=== PATIENT | male | born 1960 | race Hispanic/Latino ===

== ENCOUNTER → 2023-06-25 | Emergency (ER) | payer BC ==
[~2023-06-25] MED LIST: AMIODARONE HCL 150 MG/3 ML INJ IV ONE; AMIODARONE IN DEXTROSE,ISO-OSM 360 MG/200 ML BAG IV ONE; ASPIRIN 81 MG CHEWABLE TABLET ONE; EPINEPHrine 1 MG/10 ML SYR IV ONE; ETOMIDATE 20 MG/10 ML VIAL IV ONE; HEPARIN 5000 UNIT/ML 1 ML VIAL ONE; HEPARIN/D5W 25,000 UNIT/500 ML BAG IV ONE; LIDOCAINE 100 MG/5 ML SYRINGE IV ONE; LIDOCAINE IV ONE; MORPHINE 4 MG/ML SYR ONE; Magnesium Sulfate 2gm IVPB 2 G/50 ML BAG IV ONE; ONDANSETRON 4 MG/2 ML VIAL ONE; SODIUM CHL 0.9% 1000 ML BAG IV ONE; SUCCINYLCHOLINE 20 MG/ML (10 ML) IV ONE
[2023-06-25 19:33] LABS: Absolute Lymphocytes (CBC) 2.9 K/uL (0.7-4.9); Hematocrit 47.9 % (39.6-49.0); Lymphocytes % 25.5 % (15.3-44.8); MCV 92.1 fL (80-100); MPV 8.2 fL (7.6-11.3); Platelets 270 thou/uL (152-406)
[2023-06-25 19:52] LABS: Magnesium 2.2 mg/dL (1.6-2.4); Potassium 3.5 mEq/L (3.5-5.1); Troponin High Sensitivity 29.4 pg/mL (<58.9)
--- NOTE | 2023-06-25 20:46 | ER ---
Nurse's Notes [facility] Name: Chadwick Flores Age: 62 yrs Sex: Male : 1960 Arrival Date: 06/25/2023 Time: 19:08 Bed 17 Private MD: Diagnosis: ST elevation (STEMI) myocardial infarction involving left anterior descending coronary artery;Acute respiratory failure;Cardiac arrest, cause unspecified Presentation: 06/25 19:16 Chief complaint: Patient states: 15 MINUTES HEAVY SUBSTERNAL CHEST PAIN. Coronavirus nw1 screen: At this time, the client does not indicate any symptoms associated with coronavirus-19. Ebola Screen: No symptoms or risks identified at this time. Initial Sepsis Screen: Does the patient meet any 2 criteria? No. Patient's initial sepsis screen is negative. Does the patient have a suspected source of infection? No. Patient's initial sepsis screen is negative. Risk Assessment: Do you want to hurt yourself or someone else? Patient reports no desire to harm self or others. Onset of symptoms was June 25, 2023 at 19:00. 19:16 Method Of Arrival: Wheelchair nw1 19:16 Acuity: PARAM 1 nw1 19:30 Care prior to arrival: None. Compressions began at 19:30. as6 Triage Assessment: 19:18 General: Appears distressed, uncomfortable, Behavior is cooperative, appropriate for nw1 age, anxious. Pain: Complains of pain in chest. Cardiovascular: Rhythm is STEMI ON EKG. Historical: - Allergies: 19:18 No Known Allergies; nw1 - PMHx: 19:18 Hypertensive disorder; Cerebrovascular accident; nw1 - Immunization history:: Adult Immunizations up to date. - Social history:: Smoking status: Patient denies any tobacco usage or history of. - History obtained from: spouse. Screenin:15 [facility] ED Fall Risk Assessment (Adult) Score/Fall Risk Level 0 - 2 = Low Risk. Abuse as6 screen: Denies threats or abuse. Denies injuries from another. Nutritional screening: No deficits noted. Tuberculosis screening: No symptoms or risk factors identified. Assessment: 19:31 General: Appears uncomfortable, Behavior is restless. Pain: Complains of pain in chest as6 Noted to be guarding, moaning, restless. Cardiovascular: Reports chest pain. 19:32 General: Dr. Bowers at bedside evaluating pt and became unresponsive, cardiac as6 rhythm is v-tach, code blue called . 19:35 CPR assessment: pulses present w/ compressions. as6 19:35 Cardiac rhythm is V tach. as6 19:37 Cardiac rhythm is V tach. as6 19:39 Cardiac rhythm is V tach. as6 19:42 Cardiac rhythm is V tach. as6 19:46 Cardiac rhythm is V tach. as6 19:46 General: ROSC achieved . as6 19:57 General: failed intubation attempt by Dr. Bowers. as6 20:00 General: failed intubation attempt by Dr. Bowers. as6 20:12 Reassessment: REPORT TO [facility]U [facility] AT B/S FOR TRANSPORT. as6 20:15 General: life flight now at bedside. pt removed from hospital vital sign equipment, as6 placed on life flight equipment . Vital Signs: 19:15 BP 133 / 82; Pulse 77; Resp 16 S; Pulse Ox 100% on R/A; as6 19:16 BP 138 / 92; Pulse 77; Resp 23; Pulse Ox 100% ; Weight 90.72 kg; Height 5 ft. 7 in. ; nw1 19:42 BP 125 / 78; Pulse 108; Resp 21 S; as6 19:45 BP 108 / 65; Pulse 106; Resp 33; Pulse Ox 90% ; as6 19:48 BP 103 / 89; Pulse 101; Resp 26; Pulse Ox 99% ; as6 19:50 BP 103 / 73; Pulse 99; Resp 19; Pulse Ox 99% ; as6 19:55 BP 63 / 39; Pulse 84; Resp 22; Pulse Ox 43% ; as6 20:00 BP 67 / 44; Pulse 74; Resp 30; Pulse Ox 36% ; as6 20:02 BP 63 / 42; Pulse 83; Resp 38; Pulse Ox 77% ; as6 20:05 BP 68 / 34; Pulse 82; Resp 23; Pulse Ox 94% ; as6 20:07 BP 50 / 31; Pulse 74; Resp 25; Pulse Ox 94% ; as6 20:10 BP 54 / 33; Pulse 74; Resp 23; Pulse Ox 92% ; as6 20:13 BP 57 / 28; Pulse 79; Resp 26; Pulse Ox 89% ; as6 19:16 Body Mass Index 31.32 (90.72 kg, 170.18 cm) nw1 ED Course: 19:12 Patient arrived in ED. rv1 19:14 Sandoval Bowers is Attending Physician. ci 19:18 Triage completed. nw1 19:18 Inserted saline lock: 18 gauge 20 gauge in right in left antecubital area, using as6 aseptic technique. Blood collected. 19:18 Arm band placed on. nw1 19:20 Placed in gown. Bed in low position. Call light in reach. Side rails up X2. as6 19:20 Provided Education on: need for transfer . as6 19:37 Defibrillated with 200 joules. as6 19:40 Inserted saline lock: 18 gauge in left hand, using aseptic technique. as6 19:42 Defibrillated with 200 joules. as6 19:46 Defibrillated with 200 joules. as6 20:00 Inserted saline lock: 18 gauge in left EJ, using aseptic technique. as6 20:03 Assisted provider with intubation using 7.5 mm ETT via oral route. ET tube secured at as6 25cm at the lips. Set up intubation tray. Intubated by Clement Haskins MD Placement verified by auscultating bilateral breath sounds, CXR, Patient tolerated. 20:05 Johnson cath inserted, using sterile technique, 16 Fr., by ED staff, balloon inflated, to as6 gravity drainage, returned clear yellow urine. Patient tolerated well. NGT: inserted 16 Fr. other oral verified placement of air over stomach, verified return of gastric contents, Placement verified by X-ray, to continuous suction. Returned gastric contents. Patient tolerated well. 20:26 XRAY Chest (1 view) In Process Unspecified. EDMS 21:10 Patient transferred, IV remains in place. as6 Administered Medications: 19:19 Not Given (Other Intervention Used): aspirinsuppository 600 mg AK once as6 19:23 Not Given (Duplicate Order): Heparin (KS-Bolus No thrombolytic) - [id number] units/kg ci IVP once; Max 5000 units 19:26 Drug: Aspirin PO 162 mg PO once Route: PO; as6 19:27 Drug: Heparin (KS-Bolus with thrombolytic) - HEParin IVP 60 units/kg IVP once; Max 4000 as6 units {Co-Signature: bp (Rufina, Stevie RN).} Route: IVP; Site: right antecubital; 19:28 Drug: morphine IVP or IV 4 mg IVP once over 4 mins Route: IVP; Infused Over: 4 mins; as6 Site: left antecubital; 19:28 Drug: Ondansetron IVP 4 mg IVP once; over 2 minutes Route: IVP; Site: left antecubital; as6 19:35 Drug: EPINEPHrine 0.1mg/mL 1:10,000 1 mg IVP once Route: IVP; Site: left antecubital; as6 19:37 Drug: amiodarone 300 mg IVP once Route: IVP; Site: left antecubital; as6 19:38 Drug: EPINEPHrine 0.1mg/mL 1:10,000 1 mg IVP once Route: IVP; Site: left antecubital; as6 19:40 Drug: EPINEPHrine 0.1mg/mL 1:10,000 1 mg IVP once Route: IVP; Site: left antecubital; as6 19:41 Drug: amiodarone 150 mg IVP once Route: IVP; Site: left antecubital; as6 19:42 Drug: Magnesium Sulfate 2 grams IVPB once over 2 hrs Route: IVPB; Infused Over: 2 mins; as6 Site: right antecubital; 19:45 Drug: Lidocaine Drip 1 mg/min IV See Administration Instructions; (Standard as6 concentration 2 g / 500 mL D5W); Recommended max rate 4 mg/min; Titrate 0.5 mg/min as often as every 15 minutes to achieve goal (see titration policy); Goal parameter PHYSICIAN SPECIFIED Route: IV; Rate: calculated rate; Site: left antecubital; 19:48 Drug: amiodarone 900 mg, D5W 500 ml; IVPB at 1 mg/min continuous; for 6 hrs, then as6 change to 0.5 mg/min Route: IVPB; Rate: 1 mg/min; Site: right antecubital; 19:54 Drug: Etomidate 20 mg IVP once Route: IVP; Site: left hand; as6 19:54 Drug: Succinylcholine 120 mg IVP once Route: IVP; Site: left antecubital; as6 20:09 Drug: NS 0.9% 1000 ml IV at 1 bolus Per protocol; 1000 mL bolus Route: IV; Rate: 1 as6 bolus; Site: left antecubital; 20:15 Drug: Heparin ([place] Drip) 12 units/kg/hr - (HEParin 92414 units, D5W 500 ml;) IV Per as6 protocol; Max initial rate 1000 units/hr {Co-Signature: [email or web address] (Gerri Bourne RN).} Route: IV; Rate: calculated rate; Site: right antecubital; 20:46 CANCELLED (Physician Discretion): TNK FOR STROKE - [id number] mg IV at per as6 protocol once; MAX DOSE 25 mg, IVP over 5 seconds Medication: 19:15 VIS not applicable for this client. as6 Outcome: 19:46 Outcome Resuscitation successful as6 20:45 ER care complete, transfer ordered by . ci 21:10 Transferred by helicopter to [facility], [facility], Transfer form completed. as6 21:10 critical 21:10 Instructed on the need for transfer, 21:17 Patient left the ED. as6 Signatures: Dispatcher [employer] EDMS Vincent Shrestha RN RN as6 Radha Roman rv1 Sandoval Bowers Nicole, RN RN nw1 Stevie Almaraz RN bp Gerri Bourne RN [email or web address] Corrections: (The following items were deleted from the chart) 06/26 03:32 06/25 19:32 General: Dr. Bowers at bedside evaluating pt and became unresponsive, as6 cardiac rhythm is v-tach. as6
--- NOTE | 2023-06-25 20:47 | EDPHYS ---
Physician Documentation [facility] Name: Chadwick Flores Age: 62 yrs Sex: Male : 1960 Arrival Date: 06/25/2023 Time: 19:08 Bed 17 Private MD: ED Physician Sandoval Bowers HPI: 06/25 20:17 This 62 yrs old Male presents to ER via Wheelchair with complaints of Chest ci pain. 20:17 Patient is a 62-year-old male with PMH CVA, hypertension, hyperlipidemia who presents ci to the ED with chest pain that began about an hour prior to arrival. Pain is midsternal, feels like pressure, nonradiating. Endorses associated shortness of breath, nausea/vomiting, diaphoresis. Patient reports he has been getting similar chest pain for about a week which was relieved by extra strength Tylenol but this evening chest pain did not improve which prompted ED visit. Took 2 baby aspirin's prior to arrival. Historical: - Allergies: 19:18 No Known Allergies; nw1 - PMHx: 19:18 Hypertensive disorder; Cerebrovascular accident; nw1 - Immunization history:: Adult Immunizations up to date. - Social history:: Smoking status: Patient denies any tobacco usage or history of. - History obtained from: spouse. ROS: 20:17 Cardiovascular: Positive for chest pain, ci 20:17 Respiratory: Positive for shortness of breath, 20:17 Abdomen/GI: Positive for nausea, 20:17 Skin: Positive for diaphoresis, 21:11 Constitutional: Negative for fever, chills, and weight loss, ci Exam: 20:17 Head/Face: Normocephalic, atraumatic. Eyes: Pupils equal round and reactive to light, ci extra-ocular motions intact. Lids and lashes normal. Conjunctiva and sclera are non-icteric and not injected. Cornea within normal limits. Periorbital areas with no swelling, redness, or edema. ENT: Nares patent. No nasal discharge, no septal abnormalities noted. Tympanic membranes are normal. Oropharynx with no redness, swelling, or masses, exudates, or evidence of obstruction, uvula midline. Mucous membranes moist. Small laceration to right ear. Neck: Trachea midline, no thyromegaly or masses palpated, and no cervical lymphadenopathy. Supple, full range of motion without nuchal rigidity, or vertebral point tenderness. No Meningismus. Chest/axilla: Normal chest wall appearance and motion. Nontender with no deformity. No lesions are appreciated. Cardiovascular: Regular rate and rhythm with a normal S1 and S2. No gallops, murmurs, or rubs. Normal PMI, no JVD. No pulse deficits. Respiratory: Lungs have equal breath sounds bilaterally, clear to auscultation and percussion. No rales, rhonchi or wheezes noted. No increased work of breathing, no retractions or nasal flaring. Abdomen/GI: Soft, non-tender, with normal bowel sounds. No distension or tympany. No guarding or rebound. No evidence of tenderness throughout. Back: No spinal tenderness. No costovertebral tenderness. Full range of motion. Skin: Warm, dry with normal turgor. Normal color with no rashes, no lesions, and no evidence of cellulitis. MS/ Extremity: Pulses equal, no cyanosis. Neurovascular intact. Full, normal range of motion. Neuro: Awake and alert, GCS 15, oriented to person, place, time, and situation. Cranial nerves II-XII grossly intact. Motor strength 5/5 in all extremities. Sensory grossly intact. Cerebellar exam normal. Normal gait. Psych: Awake, alert, with orientation to person, place and time. Behavior, mood, and affect are within normal limits. 20:17 Constitutional: The patient appears anxious, obese, in obvious distress, moderately distressed, obviously ill, uncomfortable, 21:11 ECG was reviewed by the Attending Physician. ci Vital Signs: 19:15 BP 133 / 82; Pulse 77; Resp 16 S; Pulse Ox 100% on R/A; as6 19:16 BP 138 / 92; Pulse 77; Resp 23; Pulse Ox 100% ; Weight 90.72 kg; Height 5 ft. 7 in. ; nw1 19:42 BP 125 / 78; Pulse 108; Resp 21 S; as6 19:45 BP 108 / 65; Pulse 106; Resp 33; Pulse Ox 90% ; as6 19:48 BP 103 / 89; Pulse 101; Resp 26; Pulse Ox 99% ; as6 19:50 BP 103 / 73; Pulse 99; Resp 19; Pulse Ox 99% ; as6 19:55 BP 63 / 39; Pulse 84; Resp 22; Pulse Ox 43% ; as6 20:00 BP 67 / 44; Pulse 74; Resp 30; Pulse Ox 36% ; as6 20:02 BP 63 / 42; Pulse 83; Resp 38; Pulse Ox 77% ; as6 20:05 BP 68 / 34; Pulse 82; Resp 23; Pulse Ox 94% ; as6 20:07 BP 50 / 31; Pulse 74; Resp 25; Pulse Ox 94% ; as6 20:10 BP 54 / 33; Pulse 74; Resp 23; Pulse Ox 92% ; as6 20:13 BP 57 / 28; Pulse 79; Resp 26; Pulse Ox 89% ; as6 19:16 Body Mass Index 31.32 (90.72 kg, 170.18 cm) nw1 Procedures: 20:17 CPR: See CPR flow sheet. Initial patient assessment: unresponsive, agonal respirations, ci cyanotic, pale, Ambu ventilation, pulses present w/ compressions, The presenting cardiac rhythm is V tach. respirations assisted with BVM, Compressions: began at 19:32. Meds given: Epinephrine X 3, Lidocaine, Amiodarone, Defibrillation: 200 joules X 4. regained rhythm, CPR was stopped at 19:45. Intubation: Ventilated with 100% NRB prior to procedure. O2 saturation prior to procedure was 99 %. Intubated orally using S4 with 7.5 mm ETT. Successful on third attempt. Ventilated with Ambu bag. ventilator. Cricoid pressure applied during procedure. Tube secured with ETT hill Placement verified by CXR, CO2 detector with (+) color change, auscultating bilateral breath sounds, O2 saturation after procedure was 95 %. Patient tolerated well, Etomidate and succinylcholine for RSI. MDM: 19:14 Patient medically screened. ci 20:17 Differential Diagnosis STEMI, NSTEMI, stable angina, pneumonia, pneumothorax, PE. Data ci reviewed: vital signs, nurses notes, lab test result(s), EKG. Consideration of Admission/Observation Patient was admitted/placed on observation. Management of patient was discussed with the following: Physician Practice Consultant: Ekg Monitor Dr. Patrick. I considered the following discharge prescriptions or medication management in the emergency department TNK initially ordered, however patient went into V. tach arrest, type copyist stated to hold as patient will be going to [facility]. Independent interpretation of the following test(s) in the Emergency Department EKG: See my EKG interpretation above. Historians other than the Patient: Spouse/Significant Other: . Daughter/Son: . Care significantly affected by the following chronic conditions: Hypertension. Counseling: I had a detailed discussion with the patient and/or guardian regarding the historical points, exam findings, and any diagnostic results supporting the discharge/admit diagnosis, lab results, radiology results, the need to transfer to another facility. Special discussion: Discussed contraindications to TNK and heparin, no contraindications. ED course: Patient presents for chest pain, obvious anterior STEMI with reciprocal changes in inferior leads. Patient was given additional 2 baby aspirin, cardiology consulted. Patient accepted at [facility]. While in the ED patient went into witnessed V. tach arrest. Patient was defibrillated x 3 with 200 J, received amnio bolus and amnio infusion. Patient went back into V-fib, will was shocked a fourth time, lidocaine initiated at this time. CPR for 10 to 15 minutes with ROSC. Patient was subsequently intubated emergently. Tensive, started on levo drip. [facility] at bedside to transport patient to [facility]. . ED course: Critical care time: I have personally spent 75 minutes of critical care time exclusive of time spent on any procedures in the evaluation and management of this critically ill patient's condition of STEMI, cardiac arrest, respiratory failure.. 06/25 19:18 Order name: Basic Metabolic Panel; Complete Time: 21:10 ci 06/25 21:10 Interpretation: Abnormal: CRE 1.45. ci 06/25 19:18 Order name: CBC with Diff; Complete Time: 21:10 ci 06/25 21:10 Interpretation: WBC 11.50. ci 06/25 19:18 Order name: Magnesium; Complete Time: 21:10 ci 06/25 19:18 Order name: NT PRO-BNP; Complete Time: 21:10 ci 06/25 21:10 Interpretation: NT PRO-BNP 143. ci 06/25 19:18 Order name: Troponin HS; Complete Time: 21:10 ci 06/25 19:18 Order name: XRAY Chest (1 view); Complete Time: 21:10 ci 06/25 21:10 Interpretation: Abnormal: Per Radiologist's finding(s): IMPRESSION: Findings ci suggestive of central venous congestion/CHF. 06/25 19:18 Order name: EKG; Complete Time: 19:19 ci 06/25 19:18 Order name: Cardiac monitoring; Complete Time: 19:18 ci 06/25 19:18 Order name: EKG - Nurse/Tech; Complete Time: 19:18 ci 06/25 19:18 Order name: IV Saline Lock; Complete Time: 19:18 ci 06/25 19:18 Order name: Labs collected and sent; Complete Time: 19:28 ci 06/25 19:18 Order name: O2 Per Protocol; Complete Time: 19:18 ci 06/25 19:18 Order name: O2 Sat Monitoring; Complete Time: 19:18 ci EC:11 Rate is 74 beats/min. Rhythm is regular, Sinus Rhythm with Occasional PVCs. Clinical ci impression: Anterior SC - acute. Administered Medications: 19:19 Not Given (Other Intervention Used): aspirinsuppository 600 mg MD once as6 19:23 Not Given (Duplicate Order): Heparin (SC-Bolus No thrombolytic) - [id number] units/kg ci IVP once; Max 5000 units 19:26 Drug: Aspirin PO 162 mg PO once Route: PO; as6 19:27 Drug: Heparin (SC-Bolus with thrombolytic) - HEParin IVP 60 units/kg IVP once; Max 4000 as6 units {Co-Signature: bp (Stevie Almaraz RN).} Route: IVP; Site: right antecubital; 19:28 Drug: morphine IVP or IV 4 mg IVP once over 4 mins Route: IVP; Infused Over: 4 mins; as6 Site: left antecubital; 19:28 Drug: Ondansetron IVP 4 mg IVP once; over 2 minutes Route: IVP; Site: left antecubital; as6 19:35 Drug: EPINEPHrine 0.1mg/mL 1:10,000 1 mg IVP once Route: IVP; Site: left antecubital; as6 19:37 Drug: amiodarone 300 mg IVP once Route: IVP; Site: left antecubital; as6 19:38 Drug: EPINEPHrine 0.1mg/mL 1:10,000 1 mg IVP once Route: IVP; Site: left antecubital; as6 19:40 Drug: EPINEPHrine 0.1mg/mL 1:10,000 1 mg IVP once Route: IVP; Site: left antecubital; as6 19:41 Drug: amiodarone 150 mg IVP once Route: IVP; Site: left antecubital; as6 19:42 Drug: Magnesium Sulfate 2 grams IVPB once over 2 hrs Route: IVPB; Infused Over: 2 mins; as6 Site: right antecubital; 19:45 Drug: Lidocaine Drip 1 mg/min IV See Administration Instructions; (Standard as6 concentration 2 g / 500 mL D5W); Recommended max rate 4 mg/min; Titrate 0.5 mg/min as often as every 15 minutes to achieve goal (see titration policy); Goal parameter PHYSICIAN SPECIFIED Route: IV; Rate: calculated rate; Site: left antecubital; 19:48 Drug: amiodarone 900 mg, D5W 500 ml; IVPB at 1 mg/min continuous; for 6 hrs, then as6 change to 0.5 mg/min Route: IVPB; Rate: 1 mg/min; Site: right antecubital; 19:54 Drug: Etomidate 20 mg IVP once Route: IVP; Site: left hand; as6 19:54 Drug: Succinylcholine 120 mg IVP once Route: IVP; Site: left antecubital; as6 20:09 Drug: NS 0.9% 1000 ml IV at 1 bolus Per protocol; 1000 mL bolus Route: IV; Rate: 1 as6 bolus; Site: left antecubital; 20:15 Drug: Heparin ([place] Drip) 12 units/kg/hr - (HEParin 13219 units, D5W 500 ml;) IV Per as6 protocol; Max initial rate 1000 units/hr {Co-Signature: [email or web address] (Gerri Bourne RN).} Route: IV; Rate: calculated rate; Site: right antecubital; 20:46 CANCELLED (Physician Discretion): TNK FOR STROKE - [id number] mg IV at per as6 protocol once; MAX DOSE 25 mg, IVP over 5 seconds Disposition Summary: 06/25/23 20:45 Transfer Ordered Notes: Transfer Location: [facility] ci Reason: Higher level of care ci Condition: Critical ci Problem: new ci Symptoms: have improved ci Accepting Physician: Dr. Patrick(06/25/23 21:17) as6 Diagnosis - ST elevation (STEMI) myocardial infarction involving left anterior descending ci coronary artery - Acute respiratory failure ci - Cardiac arrest, cause unspecified ci Discharge Instructions: - Discharge Summary Sheet rv1 Forms: - SBAR form rv1 - Medication Reconciliation Form ci Critical care time excluding procedures: 20:17 Critical care time: Bedside Care: 45 minutes, Consultation: 20 minutes, Family ci Intervention: 10 minutes. Total time: 75 minutes Signatures: Dispatcher [employer] EDMS Vincent Shrestha RN RN as6 Sandoval Bowers Nicole, RN RN nw1 Stevie Almaraz RN bp Gerri Bourne RN [email or web address] Corrections: (The following items were deleted from the chart) 20:43 20:17 ED course: Critical care time: I have personally spent 60 minutes of critical ci care time exclusive of time spent on any procedures in the evaluation and management of this critically ill patient's condition of STEMI, cardiac arrest, respiratory failure.. ci 20:46 19:27 TNK FOR STROKE - Tenecteplase IV 50 mg IV at per protocol once; MAX DOSE 25 as6 mg, IVP over 5 seconds ordered. ci 21:17 20:45 Dr. Patrick ci as6
--- NOTE | 2023-06-25 20:53 | RAD REPORT ---
EXAM DESCRIPTION: [place] Single View06/25/2023 8:24 pm CLINICAL HISTORY: CHEST PAIN COMPARISON: CHEST SINGLE VIEW dated 05/27/2012; CHEST SINGLE VIEW dated 05/25/2012 TECHNIQUE: Portable AP view of the chest. FINDINGS: Endotracheal tube terminates 3.3 cm above the darline along the mid trachea. Enteric tube c ourses below the lower filled margin. Stable central interstitial prominence. No new focal opacities although defibrillator pad along the left hemithorax obscures evaluation. Segment of right chest wall LABORATORY SUPERVISOR shunt seen. No pneumothorax or effusion. Stable cardiomegaly. Mediastinal contours are unremarka ble. IMPRESSION: Findings suggestive of central venous congestion/CHF.
[2023-06-25 21:51] VITALS: BP 138/92; O2SAT 100
--- NOTE | 2023-06-28 13:30 | EKG ---
Test Date: 2023-06-25 Test Time: 19:10:14 Narrow Gauge Engineer: BP MEASUREMENT RESULTS: Intervals: Rate: 74 NV: 142 QRSD: 98 QT: 378 QTc: 419 Lee: P: 58 NV: 142 QRS: 1 T: -38 INTERPRETIVE STATEMENTS: Sinus rhythm with occasional premature ventricular complexes ST elevation, consider anterolateral injury or acute infarct ACUTE [place] / STEMI Abnormal ECG Compared to ECG 05/25/2012 12:24:44 Ventricular premature complex(es) now present ST (T wave) deviation now present Myocardial infarct finding now present Sinus bradycardia no longer present T-wave abnormality no longer present Electronically Signed On 06-28-23 13:23:33 SALVAGE MECHANIC by Teja Vick
== END ==
LOC: ER 19:08
PROC: 5A1935Z Respiratory Ventilation, Less than 24 Consecutive Hours (ICD-10-PCS; principal; 2023-06-25)
DX: I21.02 ST elevation (STEMI) myocardial infarction involving left anterior descending coronary artery (principal); I10 Essential (primary) hypertension; J96.00 Acute respiratory failure, unspecified whether with hypoxia or hypercapnia; I46.9 Cardiac arrest, cause unspecified; Z86.73 Personal history of transient ischemic attack (TIA), and cerebral infarction without residual deficits
CPT/HCPCS: 92960; 93005; 85025; 80048; 36415; 83735; 84484; 83880; 71045; 31500; 51702; 92950; 99291; 94002; J1644; J3475; J0282 ×2; J0171; J2405; J7030; J2001